=== PATIENT | male | born 1955 | race Caucasian/White ===

== ENCOUNTER 2017-12-21 16:17 | Inpatient (IN) | payer SELFPAY ==
[~2017-12-21] VITALS: Ht 175.3 cm; Wt 79.9 kg
[2017-12-21] MEDS ORDERED: IV NORMAL SALINE 1000 ML BAG IV ONE (16:45)
[2017-12-21 17:10] LABS: BASOPHILS # (AUTO) 0.1 K/uL (0.0-8.0); BASOPHILS % (AUTO) 0.8 % (0.0-2.0); EOSINOPHILS % (AUTO) 0.2 % (0.0-7.0); HEMATOCRIT 34.3 % (36.7-47.1); HEMOGLOBIN 11.5 g/dL (12.5-16.3); LYMPHOCYTES # (AUTO) 1.5 K/uL (20.0-40.0); LYMPHOCYTES % (AUTO) 24.2 % (20.5-51.5); MEAN CORPUSCULAR HEMOGLOBIN 30.4 uug (23.8-33.4); MEAN CORPUSCULAR HGB CONC 34 g/dL (32.5-36.3); MEAN CORPUSCULAR VOLUME 90.4 fL (73.0-96.2); MONOCYTES # (AUTO) 0.8 K/uL (2.0-10.0); MONOCYTES % (AUTO) 12.6 % (0.0-11.0); NEUTROPHILS % (AUTO) 62.2 % (38.5-71.5); PLATELET COUNT (AUTO) 139 K/uL (152-348); RED BLOOD CELL COUNT(AUTO) 3.79 MIL/uL (4.06-5.63); WHITE BLOOD COUNT (AUTO) 6.4 K/uL (3.6-10.2)
[2017-12-21 17:15] LABS: CREATININE 0.9 mg/dL (0.6-1.3); POTASSIUM 3.9 mmol/L (3.5-5.1)
[2017-12-21 17:20] LABS: BILIRUBIN,DIRECT 0.4 mg/dL (0.0-0.2); BILIRUBIN,TOTAL 1.4 mg/dL (0.2-1.0); TOTAL PROTEIN, SERUM 7.7 g/dL (6.4-8.2)
[2017-12-21 17:44] LABS: THYROID STIMULATING HORMONE 0.933 mIU/mL (0.358-3.740)
[2017-12-21] MEDS ORDERED: IV NORMAL SALINE 500 ML IV ONE (19:30)
[2017-12-21 20:30] LABS: *BILIRUBIN,URIN NEGATIVE (NEGATIVE); *BLOOD, URINE NEGATIVE (NEGATIVE); *CLARITY,URINE CLEAR (CLEAR); *COLOR,URINE YELLOW (YELLOW); *KETONES,URINE NEGATIVE (NEGATIVE); *PROTEIN,URINE NEGATIVE (NEGATIVE); LEUKOCYTE ESTERASE ,URINE NEGATIVE (NEGATIVE); NITRITE, URINE NEGATIVE (NEGATIVE); PH,URINE 6.5 (5.0-8.0); UGLUCOSE NEGATIVE (NEGATIVE)
[2017-12-21 20:38] LABS: MUCUS,URINE MODERATE /LPF (0-FEW); RBC,URINE 0-3 /HPF (0-3); WBC,URINE 0-3 /HPF (0-3)
[2017-12-21] MEDS ORDERED: ONDANSETRON 4 MG/2 ML VIAL IV PRN (23:15)
[2017-12-21] MEDS ORDERED: MAGNESIUM HYDROXIDE 30 ML LIQUID UDC PO PRN (23:15)
[2017-12-21] MEDS ORDERED: ACETAMINOPHEN 325 MG TABLET PO PRN (23:15)
[2017-12-21] MEDS ORDERED: Z GUARD REMEDY PASTE 57 GM TUBE TOP PRN (23:15)
[2017-12-21] MEDS ORDERED: ZOLPIDEM 5 MG TABLET PO PRN (23:15)
[2017-12-21] MEDS ORDERED: IV D5 1/2 NS 1000 ML 1,000 ML IV PRN (23:30)
[2017-12-21 23:35] VITALS: BP 112/67
[2017-12-21] MEDS: HYDROCODONE/APAP 5-325MG TABLET PO PRN (23:44)
[2017-12-22 05:02] VITALS: BP 95/53
[2017-12-22 06:45] LABS: BASOPHILS % (AUTO) 0.5 % (0.0-2.0); EOSINOPHILS # (AUTO) 0.1 K/uL (0.0-0.7); HEMATOCRIT 31.3 % (36.7-47.1); HEMOGLOBIN 10.6 g/dL (12.5-16.3); LYMPHOCYTES # (AUTO) 1.9 K/uL (20.0-40.0); LYMPHOCYTES % (AUTO) 47.3 % (20.5-51.5); MEAN CORPUSCULAR HEMOGLOBIN 30.9 uug (23.8-33.4); MEAN CORPUSCULAR HGB CONC 34 g/dL (32.5-36.3); MEAN CORPUSCULAR VOLUME 91.1 fL (73.0-96.2); MONOCYTES # (AUTO) 0.5 K/uL (2.0-10.0); MONOCYTES % (AUTO) 12.4 % (0.0-11.0); NEUTROPHILS # (AUTO) 1.5 K/uL (1.8-8.9); NEUTROPHILS % (AUTO) 36.8 % (38.5-71.5); PLATELET COUNT (AUTO) 109 K/uL (152-348); RED BLOOD CELL COUNT(AUTO) 3.43 MIL/uL (4.06-5.63); WHITE BLOOD COUNT (AUTO) 4.1 K/uL (3.6-10.2)
[2017-12-22 07:00] LABS: CREATININE 0.9 mg/dL (0.6-1.3); MAGNESIUM 1.5 mg/dL (1.8-2.4); PHOSPHOROUS 3.1 mg/dL (2.5-4.9); POTASSIUM 3.5 mmol/L (3.5-5.1); TOTAL PROTEIN, SERUM 6.1 g/dL (6.4-8.2)
[2017-12-22] MEDS ORDERED: IV NS 1000 ML 1,000 ML IV ONE (10:45)
[2017-12-22 11:08] VITALS: BP 84/38
[2017-12-22 12:17] VITALS: BP 91/51
[2017-12-22] MEDS: HYDROCODONE/APAP 5-325MG TABLET PO PRN (12:38)
[2017-12-22] MEDS ORDERED: MAGNESIUM OXIDE 400 MG TABLET PO ONE (14:45)
== END 2017-12-22 15:19 | disposition home or self-care (01) | DRG 922 ==
LOC: ER 16:18 → TELE 22:21 → MED 23:30
PROVIDERS: ADMIT Internal Medicine; ATTEND Internal Medicine
DX: T67.5XXA Heat exhaustion, unspecified, initial encounter (principal); G93.41 Metabolic encephalopathy; E87.2 Acidosis; M62.82 Rhabdomyolysis; E86.0 Dehydration; X30.XXXA Exposure to excessive natural heat, initial encounter; Y92.410 Unspecified street and highway as the place of occurrence of the external cause; Z59.0 Homelessness; Z99.3 Dependence on wheelchair; Z96.641 Presence of right artificial hip joint; G89.29 Other chronic pain; D69.6 Thrombocytopenia, unspecified; D64.9 Anemia, unspecified
CPT/HCPCS: 36415; 70030-TC; 71045; 72170; 73502; 83735; 84100; 84443; 85025; 85730; 93005; A4663; C1758; J3490; J7030; J7040